=== PATIENT | male | born 1980 | race Caucasian/White ===

== ENCOUNTER 2019-10-14 11:13 | Emergency (ER) | payer OTHER ==
[~2019-10-14] VITALS: Ht 170.2 cm; Wt 108.9 kg
[2019-10-14 11:18] VITALS: BP_SYST 165
[2019-10-14] MEDS ORDERED: traMADol HCL HCL 50 MG TABLET (ULTRAM) PO ONE (11:45)
[2019-10-14] MEDS ORDERED: LIDOCAINE 1% 10 MG/ML, 20 ML MDV INJ ONE (12:00)
[2019-10-14 12:30] VITALS: BP_SYST 156
== END 2019-10-14 12:30 | disposition home or self-care (01) ==
LOC: SED 11:13
DX: S62.635A Displaced fracture of distal phalanx of left ring finger, initial encounter for closed fracture (principal); S61.215A Laceration without foreign body of left ring finger without damage to nail, initial encounter; W22.8XXA Striking against or struck by other objects, initial encounter; Y93.89 Activity, other specified; Y92.89 Other specified places as the place of occurrence of the external cause; Y99.0 Civilian activity done for income or pay
CPT/HCPCS: 12001; 73130; 99283; J2001

== ENCOUNTER 2019-10-16 08:46 | Emergency (ER) | payer OTHER ==
[~2019-10-16] VITALS: Ht 170.2 cm; Wt 108.9 kg
[2019-10-16 08:46] VITALS: BP_SYST 146
[2019-10-16 09:36] VITALS: BP_SYST 146
== END 2019-10-16 09:23 | disposition home or self-care (01) ==
LOC: SED 08:46
DX: S61.215D Laceration without foreign body of left ring finger without damage to nail, subsequent encounter (principal); W45.8XXD Other foreign body or object entering through skin, subsequent encounter
CPT/HCPCS: 99282

== ENCOUNTER 2019-10-23 09:16 | Emergency (ER) | payer OTHER ==
[~2019-10-23] VITALS: Ht 170.2 cm; Wt 108.9 kg
[2019-10-23 09:16] VITALS: BP_SYST 138
--- NOTE | 2019-10-23 09:16 | NUR ---
BROUGHT BACK TO BED #4 AND TRIAGED. REPORT GIVEN TO MARYAM
--- NOTE | 2019-10-23 09:17 | NUR ---
Patient is awake, alert, and oriented x4. Patient came in for stitch removal. Patient denies any other complaints.
--- NOTE | 2019-10-23 09:20 | NUR ---
RA Holley at bedside examining patient.
[2019-10-23 09:45] VITALS: BP_SYST 124
--- NOTE | 2019-10-23 09:45 | NUR ---
Patient given written and verbal discharge instructions and verbalizes understanding. ER MD discussed with patient the results and treatment provided. Patient in stable condition. ID arm band removed. Patient educated on pain management and to follow up with PMD. Pain Scale 0/10. Opportunity for questions provided and answered. Medication side effect fact sheet provided.
== END 2019-10-23 09:45 | disposition home or self-care (01) ==
LOC: SED 09:16
DX: S61.215D Laceration without foreign body of left ring finger without damage to nail, subsequent encounter (principal); X58.XXXD Exposure to other specified factors, subsequent encounter
CPT/HCPCS: 99283

== ENCOUNTER 2019-10-30 10:00 | Emergency (ER) | payer OTHER ==
[~2019-10-30] VITALS: Ht 170.2 cm; Wt 106.6 kg
[2019-10-30 10:14] VITALS: BP_SYST 161
--- NOTE | 2019-10-30 10:17 | NUR ---
Patient to ER bed 04 to gown for evaluation. Side rails up.
--- NOTE | 2019-10-30 10:18 | NUR ---
Patient is awake, alert, and oriented x4. Patient has been seen 2x previously for a crush injury to his left index finger. Patient reports that it has swollen and is now painful to the touch.
--- NOTE | 2019-10-30 10:20 | NUR ---
ER Dr. Gorman at bedside examining patient.
[2019-10-30] MEDS ORDERED: LIDOCAINE 1% 10 MG/ML, 20 ML MDV INJ ONE (11:00)
[2019-10-30 11:25] VITALS: BP_SYST 149
[2019-10-30] MEDS ORDERED: BACITRACIN 1 GM OINT TP ONE (11:26)
--- NOTE | 2019-10-30 12:24 | NUR ---
Patient given written and verbal discharge instructions and verbalizes understanding. ER MD Gorman discussed with patient the results and treatment provided. Patient in stable condition. ID arm band removed. Rx of Lisinopril/Hydrochlorothiazide given. Patient educated on pain management and to follow up with PMD. Pain Scale 0. Opportunity for questions provided and answered. Medication side effect fact sheet provided.
== END 2019-10-30 12:24 | disposition home or self-care (01) ==
LOC: SED 10:00
DX: S60.032A Contusion of left middle finger without damage to nail, initial encounter (principal); R03.0 Elevated blood-pressure reading, without diagnosis of hypertension; W31.89XA Contact with other specified machinery, initial encounter; Y93.89 Activity, other specified; Y92.89 Other specified places as the place of occurrence of the external cause; Y99.8 Other external cause status
CPT/HCPCS: 11730; 99283; J2001